=== PATIENT | male | born 1995 | race African-American/Black ===

== ENCOUNTER 2017-10-14 20:50 | Inpatient (IN) | payer OTHER ==
[2017-10-14 21:19] LABS: HEMATOCRIT 39.5 % (42.0-52.0); HEMOGLOBIN 12.4 g/dl (13.5-17.5); MEAN CORPUSCULAR HEMOGLOBIN 28.8 pg (27.0-33.0); MEAN CORPUSCULAR HGB CONC 31.4 g/dl (32.0-36.5); MEAN CORPUSCULAR VOLUME 91.9 fl (80.0-96.0); PLATELET COUNT, AUTOMATED 328 10^3/uL (150-450); RED CELL DISTRIBUTION WIDTH 11.3 % (11.5-14.5); WHITE BLOOD COUNT 7.4 10^3/uL (4.0-10.0)
[2017-10-14 21:42] LABS: ALBUMIN 3.9 GM/DL (3.2-5.2); ALBUMIN/GLOBULIN RATIO 1.05 (1.00-1.93); ALKALINE PHOSPHATASE 98 U/L (45-117); ALT/SGPT 23 U/L (12-78); ANION GAP 7 MEQ/L (8-16); AST/SGOT 15 U/L (7-37); BILIRUBIN,DIRECT 0.1 MG/DL (0.0-0.2); BILIRUBIN,TOTAL 0.5 MG/DL (0.2-1.0); BLOOD UREA NITROGEN 14 MG/DL (7-18); CALCIUM LEVEL 8.6 MG/DL (8.5-10.1); CARBON DIOXIDE LEVEL 25 MEQ/L (21-32); CHLORIDE LEVEL 109 MEQ/L (98-107); ETHYL ALCOHOL (ETHANOL) < 0.003 % (0.000-0.010); GLUCOSE, FASTING 98 MG/DL (70-100); POTASSIUM SERUM 3.6 MEQ/L (3.5-5.1); SALICYLATE LEVEL < 1.7 MG/DL (5.0-30.0); SODIUM LEVEL 141 MEQ/L (136-145); TOTAL PROTEIN 7.6 GM/DL (6.4-8.2)
[2017-10-14 21:46] LABS: ACETAMINOPHEN LEVEL < 2.0 UG/ML (10.0-30.0)
[2017-10-14 22:23] LABS: AMPHETAMINES LEVEL URINE NEGATIVE (NEGATIVE); BARBITURATES URINE NEGATIVE (NEGATIVE); BENZODIAZEPINES URINE NEGATIVE (NEGATIVE); CANNABINOIDS URINE NEGATIVE (NEGATIVE); COCAINE METABOLITE URINE NEGATIVE (NEGATIVE); METHADONE URINE NEGATIVE (NEGATIVE); OPIATES URINE NEGATIVE (NEGATIVE); PHENCYCLIDINE URINE NEGATIVE (NEGATIVE)
[2017-10-14] MEDS ORDERED: MAALOX 30 ML SUSP *UDC PO (22:30)
[2017-10-14] MEDS ORDERED: MOM 30ML SUSPENSION UDC PO (22:30)
[2017-10-14] MEDS ORDERED: traZODone 50 MG TAB PO (22:30)
[2017-10-14] MEDS ORDERED: ACETAMINOPHEN TAB 650MG DOSE (2X325MG) PO (22:30)
[2017-10-15] MEDS: SERTRALINE HCL 50 MG TAB PO (11:49)
[2017-10-15] MEDS: VITAMIN A & D OINTMENT 60 GM TOP (17:45)
[2017-10-16 07:25] LABS: HEMATOCRIT 41.7 % (42.0-52.0); HEMOGLOBIN 13.1 g/dl (13.5-17.5); MEAN CORPUSCULAR HEMOGLOBIN 28.7 pg (27.0-33.0); MEAN CORPUSCULAR HGB CONC 31.4 g/dl (32.0-36.5); MEAN CORPUSCULAR VOLUME 91.4 fl (80.0-96.0); PLATELET COUNT, AUTOMATED 322 10^3/uL (150-450); RED BLOOD COUNT 4.56 10^6/uL (4.30-6.10); RED CELL DISTRIBUTION WIDTH 11.4 % (11.5-14.5); WHITE BLOOD COUNT 6.5 10^3/uL (4.0-10.0)
[2017-10-16] MEDS: SERTRALINE HCL 50 MG TAB PO (08:40)
[2017-10-16] MEDS: VITAMIN A & D OINTMENT 60 GM TOP (12:25)
[2017-10-17] MEDS: SERTRALINE HCL 50 MG TAB PO (08:43)
[2017-10-17] MEDS: VITAMIN A & D OINTMENT 60 GM TOP (08:48)
[2017-10-18] MEDS: SERTRALINE HCL 50 MG TAB PO (08:47)
[2017-10-18] MEDS: VITAMIN A & D OINTMENT 60 GM TOP (08:48)
== END 2017-10-18 13:50 | disposition home or self-care (01) | DRG 881 ==
LOC: M ED 20:50 → M ED INP 22:30 → M PSY 23:35
DX: F32.9 Major depressive disorder, single episode, unspecified (principal); Z79.899 Other long term (current) drug therapy; Z91.013 Allergy to seafood; D64.9 Anemia, unspecified; M72.2 Plantar fascial fibromatosis

== ENCOUNTER 2018-03-18 11:41 | Emergency (ER) | payer OTHER | END 2018-03-18 12:09 | disposition home or self-care (01) | LOC: M ED 11:41 | DX: R19.7 Diarrhea, unspecified (principal); R11.10 Vomiting, unspecified; F17.200 Nicotine dependence, unspecified, uncomplicated; Z91.013 Allergy to seafood; Z79.899 Other long term (current) drug therapy | CPT/HCPCS: 99282 ==

== ENCOUNTER 2024-06-08 11:43 | Emergency (ER) | payer OTHER ==
[~2024-06-08] VITALS: Ht 185.4 cm; Wt 132.0 kg
[~2024-06-08 11:43] MED LIST: ADDE20CA3 PO; BENA25CA4 PO; EPIP0.3I2 INJ; HYDR-3363 PO; HYDR50TA70 PO; LEXA1TAB PO; LEXA1TAB2 PO; SERT-141 PO; TRAM50TA2 PO; VOLT1GEL15 TD; ZOLO50TA PO
[2024-06-08 14:40] VITALS: BP 143/76; TEMP 97.9; O2SAT 98
== END 2024-06-08 14:57 | disposition left against medical advice (07) ==
LOC: M ED 11:43
DX: Z53.21 Procedure and treatment not carried out due to patient leaving prior to being seen by health care provider (principal)

== ENCOUNTER 2025-04-12 22:10 | Emergency (ER) | payer OTHER ==
[~2025-04-12] VITALS: Ht 182.9 cm; Wt 130.0 kg
[2025-04-12 23:16] LABS: BASO # 0.1 10^3/uL (0.0-0.2); BASO % 0.8 % (0.0-1.0); EOS # 1.1 10^3/uL (0.0-0.5); EOS % 10.3 % (0.0-3.0); LYMPH # 3.1 10^3/uL (1.5-5.0); LYMPH % 29.3 % (24.0-44.0); MONO # 0.8 10^3/uL (0.0-0.8); MONO % 7.8 % (2.0-8.0); NEUTROPHILS # 5.4 10^3/uL (1.5-8.5); NEUTROPHILS % 51.5 % (36.0-66.0); PLATELET COUNT, AUTOMATED 372 10^3/uL (150-450)
[2025-04-12 23:50] LABS: ALT/SGPT 20 U/L (7.0-40); AST/SGOT 18 U/L (<34); CALCIUM LEVEL 9.0 MG/DL (8.5-10.1); CARBON DIOXIDE LEVEL 28 MMOL/L (20-31); CHLORIDE LEVEL 104 MMOL/L (98-107); CREATININE FOR GFR 1.11 MG/DL (0.70-1.30); GLOMERULAR FILTRATION RATE > 90.0 (>60); POTASSIUM SERUM 3.8 MMOL/L (3.5-5.1); SODIUM LEVEL 142 MMOL/L (136-145)
[2025-04-13] MEDS ORDERED: ALBU2.5V10 NEB (01:31)
[2025-04-13] MEDS ORDERED: PRED20TA PO (01:31)
[2025-04-13] MEDS: ALBUTEROL 90 MCG/ACT 8 GM HFA INHALER INH ONE (01:37)
[2025-04-13] MEDS: predniSONE 20 MG TAB PO ONE (01:37)
[2025-04-13 01:41] VITALS: BP 132/66; TEMP 97.5; O2SAT 98
== END 2025-04-13 01:42 | disposition home or self-care (01) ==
LOC: M ED 22:10
DX: J45.901 Unspecified asthma with (acute) exacerbation (principal); F17.200 Nicotine dependence, unspecified, uncomplicated; Z91.013 Allergy to seafood; Z79.52 Long term (current) use of systemic steroids; Z79.899 Other long term (current) drug therapy
CPT/HCPCS: 36415; 71045; 80048; 80076; 85025; 87486; 87581; 87633; 87798; 93005; 93041; 94760; 99284; J7512